=== PATIENT | female | born 1975 | race Caucasian/White ===

== ENCOUNTER 2019-03-26 15:22 | Emergency (ER) | payer MEDICAID ==
[~2019-03-26] VITALS: Ht 152.4 cm; Wt 49.9 kg
[2019-03-26 15:39] VITALS: BP_SYST 132
--- NOTE | 2019-03-26 15:45 | NUR ---
Patient presented to ER with c/o left ankle pain. patient presented to ER with left ankle pain from skate board injury 2 weeks ago, Patient A &Ox4, ambulatory to ER, skin pink, left ankle swelling, pain /, denies N/V/D. Patient staes she was skate boarding with her children, she fell off skateboard, denies KO, denies head injury.
--- NOTE | 2019-03-26 16:20 | NUR ---
ER Dr. Clements at bedside examining patient.
[2019-03-26 16:42] VITALS: BP_SYST 132
--- NOTE | 2019-03-26 16:42 | NUR ---
Patient given written and verbal discharge instructions and verbalizes understanding. ER MD discussed with patient the results and treatment provided. Patient in stable condition. ID arm band removed. Rx of Vioxx 25 mg given. Patient educated on pain management and to follow up with PMD. Pain Scale 2/10. Opportunity for questions provided and answered. Medication side effect fact sheet provided.
--- NOTE | 2019-03-26 16:54 | NUR ---
Note undone in EDM - 03/26/19 at 1729 by [email or web address] Patient given written and verbal discharge instructions and verbalizes understanding. ER discussed with patient the results and treatment provided. Patient in stable condition. ID arm band removed. IV catheter removed intact and dressing applied, no active bleeding. Rx of Motrin 800mg given. Patient educated on pain management and to follow up with PMD. Pain Scale 1/10. Opportunity for questions provided and answered. Medication side effect fact sheet provided.
== END 2019-03-26 16:42 | disposition home or self-care (01) ==
LOC: SED 15:22
DX: S93.402A Sprain of unspecified ligament of left ankle, initial encounter (principal); R03.0 Elevated blood-pressure reading, without diagnosis of hypertension; Z88.6 Allergy status to analgesic agent; V00.131A Fall from skateboard, initial encounter; Y93.51 Activity, roller skating (inline) and skateboarding; Y92.89 Other specified places as the place of occurrence of the external cause; Y99.8 Other external cause status
CPT/HCPCS: 99283

== ENCOUNTER 2019-04-26 18:55 | Emergency (ER) | payer MEDICAID ==
[~2019-04-26] VITALS: Ht 152.4 cm; Wt 49.9 kg
[2019-04-26 19:03] VITALS: BP_SYST 137
--- NOTE | 2019-04-26 19:03 | NUR ---
Patient to ER bed 07 to gown for evaluation. Side rails up. Report given to natalie no
--- NOTE | 2019-04-26 19:05 | NUR ---
Pt brought by self, A&Ox4, pt presents to ER with pain/ swelling and yellow discharge on L middle finger,skin pink and warm, afebrile.
--- NOTE | 2019-04-26 19:07 | NUR ---
Jil Lara [employer] at bedside examining patient
[2019-04-26] MEDS ORDERED: LIDOCAINE 1% 10 MG/ML, 20 ML MDV INJ ONE (19:15)
[2019-04-26] MEDS ORDERED: ACETAMINOPHEN 500 MG TABLET PO ONE (19:15)
[2019-04-26 19:30] VITALS: BP_SYST 132
--- NOTE | 2019-04-26 19:31 | NUR ---
Patient given written and verbal discharge instructions and verbalizes understanding. ER MD discussed with patient the results and treatment provided. Patient in stable condition. ID arm band removed. Rx of Bactrim, Kelfex, Tylenol ,Mupirocin given. Patient educated on pain management and to follow up with PMD. Pain Scale 2/10 tolerable for patient . Opportunity for questions provided and answered. Medication side effect fact sheet provided.
== END 2019-04-26 19:30 | disposition home or self-care (01) ==
LOC: SED 18:55
DX: L03.012 Cellulitis of left finger (principal); R03.0 Elevated blood-pressure reading, without diagnosis of hypertension; F17.200 Nicotine dependence, unspecified, uncomplicated; Z88.6 Allergy status to analgesic agent
CPT/HCPCS: 99283

== ENCOUNTER 2021-06-18 04:21 | Emergency (ER) | payer MEDICAID ==
[~2021-06-18] VITALS: Ht 152.4 cm; Wt 49.9 kg
[2021-06-18 04:30] VITALS: BP_SYST 111
[2021-06-18] MEDS ORDERED: DIPH-TET-PERTUS Vaccine 0.5 ML VIAL (ADACEL) I.M. ONE (05:00)
[2021-06-18] MEDS ORDERED: LIDOCAINE/EPI 1% 1:100000 20 ML VIAL INJ ONE (05:15)
[2021-06-18 06:57] VITALS: BP_SYST 111
== END 2021-06-18 06:10 | disposition home or self-care (01) ==
LOC: SED 04:21
DX: S81.811A Laceration without foreign body, right lower leg, initial encounter (principal); Z88.6 Allergy status to analgesic agent; W45.8XXA Other foreign body or object entering through skin, initial encounter; Y93.89 Activity, other specified; Y92.89 Other specified places as the place of occurrence of the external cause; Y99.8 Other external cause status
CPT/HCPCS: 90715; 99283

== ENCOUNTER 2023-03-26 14:29 | Inpatient (IN) | payer MEDICAID ==
[~2023-03-26] VITALS: Ht 152.4 cm; Wt 49.9 kg
[2023-03-26 14:39] VITALS: BP_SYST 119; PULSE 142; RESP 18; TEMP 98.3; O2SAT 97
[2023-03-26 17:11] LABS: ALBUMIN 2.7 g/dL (3.4-4.8); CALCIUM 8.5 mg/dL (8.4-11.0); CREATININE 1.1 mg/dL (0.55-1.30); TOTAL BILIRUBIN 0.8 mg/dL (0.0-1.0)
[2023-03-26] MEDS ORDERED: NACL 0.9% 1,000 ML IV ONE ×3 (17:15→23:00)
[2023-03-26 17:18] LABS: BILIRUBIN,URINE NEGATIVE (NEGATIVE); BLOOD, URINE 2+ (NEGATIVE); CLARITY/URINE CLOUDY (CLEAR); COLOR,URINE YELLOW (YELLOW); GLUCOSE,URINE NEGATIVE (NEGATIVE); KETONES,URINE NEGATIVE (NEGATIVE); LEUKOCYTE ESTERASE ,URINE 3+ (NEGATIVE); NITRITE, URINE NEGATIVE (NEGATIVE); PROTEIN URINE 3+ (NEGATIVE)
[2023-03-26 18:00] LABS: UROBILINOGEN,URINE >=8 (0.2-1.0)
[2023-03-26] MEDS ORDERED: ACETAMINOPHEN 500 MG TABLET PO ONE (18:00)
[2023-03-26 18:04] LABS: HEMATOCRIT 38.2 % (36-48); HEMOGLOBIN 12.4 g/dL (12.0-16.0); MEAN CORPUSCULAR HEMOGLOBIN 26 pg (27-31); MEAN CORPUSCULAR HGB CONC 33 % (32-36); MEAN CORPUSCULAR VOLUME 81 fL (79.0-98.0); PLATELET COUNT (AUTO) 245 K/uL (130-430); RED BLOOD CELL COUNT(AUTO) 4.71 MIL/uL (4.2-6.2); RED CELL DISTRIBUTION WIDTH 15.2 % (9.0-15.0); WHITE BLOOD COUNT (AUTO) 19.1 K/uL (4.8-10.8)
[2023-03-26 18:05] LABS: BASOPHILS % (AUTO) 0.2 % (0.0-2.0); LYMPHOCYTES # (AUTO) 0.8 K/uL (1.0-5.5); LYMPHOCYTES % (AUTO) 4.1 % (20.5-51.5); MONOCYTES # (AUTO) 1.1 K/uL (0.0-1.0); NEUTROPHILS # (AUTO) 17.1 K/uL (1.8-7.7); NEUTROPHILS % (AUTO) 89.7 % (40.0-70.0)
[2023-03-26 18:10] LABS: BACTERIA,URINE MANY /HPF (None Seen); WBC,URINE 50-80 /HPF (0-3)
[2023-03-26] MEDS ORDERED: cefTRIAXone 1 GM IVPB PREMIX 50 ML IV ONE (18:15)
[2023-03-26] MEDS ORDERED: LORazepam 2 MG/ML VIAL IVP PRN (20:30)
[2023-03-26] MEDS ORDERED: HYDROcodone/ACETAMIN 5-325 MG TAB (NORCO/ VICODIN) PO PRN (20:30)
[2023-03-26] MEDS ORDERED: NALOXONE HCL 0.4 MG/ML AMP (NARCAN) IVP PRN ×2 (20:30)
[2023-03-26] MEDS ORDERED: ONDANSETRON HCL 4 MG/2 ML VIAL IVP PRN (20:30)
[2023-03-26] MEDS ORDERED: ACETAMINOPHEN 325 MG TABLET PO PRN (20:45)
[2023-03-26] MEDS: D5/0.45 NS 1,000 ML IV SCH (20:56)
[2023-03-26] MEDS: cefTRIAXone 1 GM IVPB PREMIX 50 ML IV SCH (20:57)
[2023-03-26] MEDS: ACETAMINOPHEN 325 MG TABLET PO PRN (21:29)
[2023-03-26 22:10] VITALS: BP_SYST 90; PULSE 128; RESP 18; TEMP 99.1; O2SAT 100
[2023-03-27] VITALS (7 sets, daily range): BP systolic 90–113; PULSE 107–123; RESP 16–20; TEMP 97.6–99; O2SAT 99–100
[2023-03-27 06:06] LABS: BASOPHILS % (AUTO) 0.1 % (0.0-2.0); HEMATOCRIT 31.5 % (36-48); HEMOGLOBIN 9.8 g/dL (12.0-16.0); LYMPHOCYTES # (AUTO) 0.6 K/uL (1.0-5.5); LYMPHOCYTES % (AUTO) 3.4 % (20.5-51.5); MEAN CORPUSCULAR HEMOGLOBIN 26 pg (27-31); MEAN CORPUSCULAR HGB CONC 31 % (32-36); MEAN CORPUSCULAR VOLUME 82 fL (79.0-98.0); MONOCYTES # (AUTO) 0.5 K/uL (0.0-1.0); MONOCYTES % (AUTO) 3.1 % (1.7-9.3); NEUTROPHILS # (AUTO) 15.7 K/uL (1.8-7.7); NEUTROPHILS % (AUTO) 93.4 % (40.0-70.0); PLATELET COUNT (AUTO) 181 K/uL (130-430); RED BLOOD CELL COUNT(AUTO) 3.85 MIL/uL (4.2-6.2); RED CELL DISTRIBUTION WIDTH 15.1 % (9.0-15.0); WHITE BLOOD COUNT (AUTO) 16.8 K/uL (4.8-10.8)
[2023-03-27 06:26] LABS: CALCIUM 7.2 mg/dL (8.4-11.0); CREATININE 0.9 mg/dL (0.55-1.30)
[2023-03-27] MEDS: D5/0.45 NS 1,000 ML IV SCH ×2 (09:49→18:43)
[2023-03-27] MEDS: ACETAMINOPHEN 325 MG TABLET PO PRN (14:22)
[2023-03-27] MEDS: cefTRIAXone 1 GM IVPB PREMIX 50 ML IV SCH (21:09)
[2023-03-28] MEDS: D5/0.45 NS 1,000 ML IV SCH (00:48)
[2023-03-28 05:33] LABS: ERYTHROCYTE SEDIMENTATION RATE 52 MM/HR (0-20)
[2023-03-28 05:35] LABS: BASOPHILS % (AUTO) 0.2 % (0.0-2.0); EOSINOPHILS # (AUTO) 0.1 K/uL (0.0-0.4); EOSINOPHILS % (AUTO) 0.5 % (0.0-4.0); HEMATOCRIT 31.3 % (36-48); LYMPHOCYTES # (AUTO) 1.2 K/uL (1.0-5.5); LYMPHOCYTES % (AUTO) 8.5 % (20.5-51.5); MEAN CORPUSCULAR HEMOGLOBIN 26 pg (27-31); MEAN CORPUSCULAR HGB CONC 32 % (32-36); MEAN CORPUSCULAR VOLUME 81 fL (79.0-98.0); MONOCYTES # (AUTO) 0.8 K/uL (0.0-1.0); MONOCYTES % (AUTO) 5.8 % (1.7-9.3); NEUTROPHILS # (AUTO) 12.1 K/uL (1.8-7.7); PLATELET COUNT (AUTO) 197 K/uL (130-430); RED BLOOD CELL COUNT(AUTO) 3.85 MIL/uL (4.2-6.2); RED CELL DISTRIBUTION WIDTH 15.7 % (9.0-15.0); WHITE BLOOD COUNT (AUTO) 14.3 K/uL (4.8-10.8)
[2023-03-28 05:55] LABS: ALBUMIN 1.8 g/dL (3.4-4.8); CALCIUM 7.8 mg/dL (8.4-11.0); CREATININE 0.82 mg/dL (0.55-1.30); TOTAL BILIRUBIN 0.3 mg/dL (0.0-1.0)
[2023-03-28 07:56] VITALS: BP_SYST 106; PULSE 107; RESP 16; TEMP 98.2; O2SAT 100
[2023-03-28] MEDS: POTASSIUM CHLORIDE 40 MEQ in NS 250 ML IV ONE ×2 (08:33→09:00)
[2023-03-28] MEDS: HYDROcodone/ACETAMIN 10-325 MG TAB PO PRN (08:37)
[2023-03-28] MEDS ORDERED: SUMAtriptan SUCCINATE 50 MG TABLET PO ONE (09:45)
[2023-03-28] MEDS ORDERED: LEVO-62 PO (11:14)
[2023-03-28 11:23] VITALS: BP_SYST 116; PULSE 114; RESP 20; TEMP 99.2; O2SAT 99
== END 2023-03-28 12:05 | disposition home or self-care (01) | DRG 720 ==
LOC: SED 14:29 → STU 19:10 → SMU 03-28 11:11
PROVIDERS: ADMIT Preventive Medicine Preventive Medicine/Occupational Environmental Medicine; ATTEND Preventive Medicine Preventive Medicine/Occupational Environmental Medicine
DX: A41.9 Sepsis, unspecified organism (principal); E87.20 Acidosis, unspecified; E43 Unspecified severe protein-calorie malnutrition; E87.1 Hypo-osmolality and hyponatremia; I95.9 Hypotension, unspecified; N10 Acute pyelonephritis; R73.9 Hyperglycemia, unspecified; E87.6 Hypokalemia; E88.09 Other disorders of plasma-protein metabolism, not elsewhere classified; R74.01 Elevation of levels of liver transaminase levels; D64.9 Anemia, unspecified; B96.89 Other specified bacterial agents as the cause of diseases classified elsewhere; Z87.442 Personal history of urinary calculi; Z88.8 Allergy status to other drugs, medicaments and biological substances; Z79.899 Other long term (current) drug therapy; Z68.21 Body mass index [BMI] 21.0-21.9, adult
CPT/HCPCS: 36415; 76376; 80048; 80053; 81000; 83605; 83690; 85025; 85651-TC; 87040; 87086; 96361; 96365; 99285; G0378; J0696; J3480; J7030; J7050